=== PATIENT | male | born 1935 | race African-American/Black ===

== ENCOUNTER 2019-09-20 08:52 | Outpatient (CLI) | payer MEDICARE ==
--- NOTE | 2019-09-20 17:04 | XRay Report ---
CHEST 2 VIEWS INDICATION / CLINICAL INFORMATION: ACUTE BRONCHITIS WITH INFECTION. COMPARISON: None available. FINDINGS: SUPPORT DEVICES: None. HEART / MEDIASTINUM: No significant abnormality. LUNGS / PLEURA: Patchy bibasilar airspace disease No pneumothorax. ADDITIONAL FINDINGS: No significant additional findings. IMPRESSION: Patchy bibasilar airspace disease is present Signer Name: David Avilez MD FACR Signed: 09/20/2019 4:59 PM Workstation Name: [id number]
== END 2019-09-20 08:53 | disposition home or self-care (01) ==
LOC: SPVIMAG 08:52
PROVIDERS: ATTEND Family Medicine
DX: J20.8 Acute bronchitis due to other specified organisms (principal)
CPT/HCPCS: 71046

== ENCOUNTER 2019-12-06 11:23 | Outpatient (CLI) | payer MEDICARE ==
--- NOTE | 2019-12-06 14:05 | Cat Scan Report ---
CT CHEST WITHOUT IV CONTRAST INDICATION: COPD MIXED TYPE. COMPARISON: None available. TECHNIQUE: All CT scans at this location are performed using CT dose reduction for ALARA by means of automated e xposure control. Axial CT images were obtained through the chest. FINDINGS: Upper Abdomen: No acute findings. Sand-like stones are noted in the gallbladder. There is a small hia arnaud hernia. Skeletal System: No acute abnormality. Chest: Great Vessels: No acute abnormality. Heart: There is marked cardiomegaly. Moderate coronary artery calcification is noted. Mediastinum & Christa: No adenopathy. Esophagus is patulous with air fluid level. Lungs: There is a 4 mm noncalcified nodule in the anterior inferior right upper lobe on series 2 imag e 41. Within the inferior lingula and within the dependent lung bases, mild mixed interstitial and a irspace opacities are noted. Pleura: No significant pleural effusion. No pneumothorax. Additional Findings: None. IMPRESSION: 1. Mixed interstitial and airspace opacities within the dependent lung bases and within the inferior lingula. These are nonspecific. Given their dependent nature, these could be due to atelectasis. Give n the fluid-filled, patulous esophagus, this can also be seen in the setting of acute or chronic aspi ration pneumonitis. There is a more focal area of consolidation measuring approximately 3 cm in the d ependent superior right lower lobe. This could be an area of chronic/round atelectasis or focal conso lidation/pneumonia. Follow-up is recommended. 2. Single incidental pulmonary nodule(s) in the right upper lobe measuring 4 mm with solid characteri stics. - Recommendation according to Fleischner Society 2017 Guidelines: Low Risk Patient: No routine follow -up; High Risk Patient: Optional CT at 12 months. 3. Incidental findings as above. Signer Name: Waylon Hines MD Signed: 12/06/2019 2:00 PM Workstation Name: [id number]
== END 2019-12-06 11:24 | disposition home or self-care (01) ==
LOC: CT 11:23
PROVIDERS: ATTEND Family Medicine
DX: R91.1 Solitary pulmonary nodule (principal); J44.9 Chronic obstructive pulmonary disease, unspecified; K44.9 Diaphragmatic hernia without obstruction or gangrene
CPT/HCPCS: 36415; 71250; 82565; 84520